=== PATIENT | female | born 1975 | race Caucasian/White ===

== ENCOUNTER 2025-06-04 07:40 | Outpatient (CLI) | payer OTHER, SELFPAY ==
--- NOTE | 2025-06-04 | ECHO_ITS ---
Patient Info Name: Estrellita Hoff Age: 49 years : 1975 Gender: Female Ht: 60 in Wt: 190 lbs BSA: 1.96 m2 HR: 102 bpm BP: 127 / 93 mmHg Technical Quality: Good Exam Date: 06/04/2025 8:22 AM Patient Status: O Admit Date: 06/04/2025 Exam Type: CA echo doppler color flow Complete two-dimensional, color flow and Doppler transthoracic echocardiogram is performed. [employer]ting [employer] Tender: Gunjan So Attending Provider: Kelvin Padilla Summary 1. Complete two-dimensional, color flow and Doppler transthoracic echocardiogram is performed. 2. There is normal biventricular size and systolic function. 3. There is moderate concentric left ventricular hypertrophy. 4. There is moderate pulmonary hypertension with a PASP estimated to be 62 mm Hg. Left Ventricle The left ventricle is normal in size and systolic function. There is moderate concentric left ventricular hypertrophy. The left ventricular ejection fraction is visually estimated to be 55-60%. Right Ventricle The right ventricle is normal in size and systolic function. Left Atria The left atrium is normal size. Right Atria The right atrium is normal size. Atrial Septum The atrial septum is intact. Aortic Valve The aortic valve is probable trileaflet and opens well. There is no aortic regurgitation. Pulmonic Valve The pulmonic valve is not well visualized. There is no color Doppler evidence of pulmonic valve regurgitation. Mitral Valve The mitral valve is normal. There is no mitral regurgitation. Tricuspid Valve The tricuspid valve is normal. There is mild tricuspid regurgitation. Pulmonary Arteries Pulmonary arterial systolic pressure is estimated at 62 mmHg. There is moderate pulmonary hypertension. Pericardium/Pleural Pericardium is normal in appearance with no evidence for significant pericardial effusion. Inferior Vena Cava Normal inferior vena cava with <50% collapse upon inspiration consistent with normal right atrial pressure, 3 mmHg. Aorta The aortic root at the level of the sinus of Valsalva measures 3.5 cm in diameter. Left Ventricular Outflow Tract Name Value Normal LVOT 2D LVOT Diameter 2.0 cm LVOT Doppler LVOT Peak Velocity 156 cm/s LVOT Peak Gradient 9 mmHg LVOT Mean Gradient 5 mmHg LVOT VTI 31 cm LVOT VTI/AV VTI Ratio 0.8 LVOT Stroke Volume 95 ml LVOT CO 10.6 l/min LVOT CI 5.4 l/min/m2 Pulmonic Valve Name Value Normal RVOT Doppler RVOT Peak Velocity 69 cm/s RVOT Peak Gradient 2 mmHg PV Doppler PV Peak Velocity 127 cm/s PV Peak Gradient 6 mmHg Mitral Valve Name Value Normal MV Doppler MV Peak Gradient 5 mmHg MV Mean Gradient 3 mmHg MV Area (Cont Eq VTI) 4.5 cm2 MV Diastolic Function MV E Peak Velocity 77 cm/s MV A Peak Velocity 87 cm/s MV E/A 0.9 MV Decel Time (PW) 320 ms MV Annular TDI MV E/e' (Septal) 9.3 MV E/e' (Lateral) 6.2 MV E/e' (Average) 7.8 Tricuspid Valve Name Value Normal TV Regurgitation Doppler TR Peak Velocity 384 cm/s TR Peak Gradient 59 mmHg Estimated PAP/RSVP RA Pressure 3 mmHg <=5 PA Systolic Pressure 62 mmHg <36 RV Systolic Pressure 62 mmHg <36 Aortic Valve Name Value Normal AV Doppler AV Peak Velocity 207 cm/s AV Peak Gradient 15 mmHg AV Mean Gradient 9 mmHg AV VTI 40 cm AV Area (Cont Eq VTI) 2.4 cm2 >=3.0 AV Area (Cont Eq Roberto) 2.3 cm2 AV DI (Roberto) 0.75 AV Regurgitation 2D LVOT Area 3.0 cm2 Ventricles Name Value Normal LV Dimensions 2D/MM IVS Diastolic Thickness (2D) 1.3 cm 0.6-1.0 LVID Diastole (2D) 4.8 cm 3.8-5.2 LVIW Diastolic Thickness (2D) 1.2 cm 0.6-0.9 LVID Systole (2D) 3.3 cm 2.2-3.5 LVOT Diameter 2.0 cm LV Mass (2D Cubed) 234.28 g 67.00-162.00 LV Mass Index (2D Cubed) 120 g/m2 43-95 Relative Wall Thickness (2D) 0.51 <=0.42 LV Fractional Shortening/Ejection Fraction 2D/MM LV Fractional Shortening (2D) 31 % 27-45 LV EF (2D Teichholz) 58 % LV Diastolic Volume (4C MOD) 84 ml LV EF (4C MOD) 57 % LV Diastolic Volume (2C MOD) 113 ml LV EF (2C MOD) 57 % LV Diastolic Volume (BP MOD) 97 ml 46-106 LV Diastolic Volume Index (BP MOD) 50 ml/m2 29-61 LV Systolic Volume (BP MOD) 43 ml 14-42 LV Systolic Volume Index (BP MOD) 22 ml/m2 8-24 LV EF (BP MOD) 56 % 54-74 LV Diastolic Length (4C) 9.0 cm LV Systolic Length (4C) 7.2 cm LV Stroke Volume (4C MOD) 48 ml Atria Name Value Normal LA Dimensions LA Volume (4C A-L) 62 ml LA Volume (BP A-L) 56 ml RA Dimensions RA Systolic Major [place] Length (4C) 5.7 cm 2.2-2.8 RA Area (4C) 19.3 cm2 <=18.0 Report Signatures
== END 2025-06-04 07:41 | disposition home or self-care (01) ==
PROVIDERS: PCP Internal Medicine; Visit Provider Internal Medicine
DX: I51.7 Cardiomegaly (principal); I27.20 Pulmonary hypertension, unspecified
CPT/HCPCS: 93306